=== PATIENT | female | born 1935 | race Caucasian/White ===

== ENCOUNTER 2018-09-17 03:17 | Emergency (ER) | payer OTHER, MEDICAID ==
[~2018-09-17] VITALS: Ht 147.3 cm; Wt 45.5 kg
[~2018-09-17 03:17] MED LIST: ACET500C5 PO
[2018-09-17 03:19] VITALS: Ht 147.3 cm; Wt 45.5 kg
[2018-09-17] MEDS ORDERED: morphine 2 MG INJ IV STA ×2 (03:34→04:39)
--- NOTE | 2018-09-17 03:59 | ERD ---
ER Documentation Chief Complaint Chief Complaint left shoulder pain s/p mechanical trip & fall, no LOC, no nk/bk HPI 82-year-old female presenting from home after she had a mechanical fall. She was getting up to go check on her granddaughters baby when she tripped and fell onto her left shoulder. She complains of severe left shoulder pain, 10 out of 10, nonradiating, aching. Worse with movement. Denies any head injury or loss of consciousness. No chest pain, shortness of breath, or any other injuries. ROS All systems reviewed and are negative except as per history of present illness. Medications Home Meds Active Scripts Hydrocodone/Acetaminophen ([place] 5-325 Tablet) 1 Each Tablet, 1 TAB PO Q6H PRN for PAIN, #7 TAB Prov:SUZAN SOLANO MD 09/17/18 Acetaminophen* (Tylophen*) 500 Mg Capsule, 1 CAP PO Q6H PRN for PAIN AND OR ELEVATED TEMP, #16 CAP Prov:REBECCA STEARNS MD 11/27/15 Allergies Allergies: Coded Allergies: No Known Allergy (Unverified , 11/27/15) PMhx/Soc History of Surgery: No Anesthesia Reaction: No Hx Neurological Disorder: No Hx Respiratory Disorders: No Hx Cardiac Disorders: Yes (hypertension) Hx Psychiatric Problems: No Hx Alcohol Use: No Hx Substance Use: No Hx Tobacco Use: No Smoking Status: Never smoker FmHx Family History: No diabetes Physical Exam Vitals Vital Signs Date Temp Pulse Resp B/P (MAP) Pulse Ox O2 O2 Flow FiO2 Time Delivery Rate 09/17/18 62 18 120/64 97 Room Air 06:03 (82) 09/17/18 63 19 126/71 97 Room Air 05:20 (89) 09/17/18 97.9 64 18 139/75 98 Room Air 04:45 (96) 09/17/18 65 20 128/68 97 Room Air 03:46 (88) 09/17/18 97.5 64 18 152/80 99 03:19 (104) Physical Exam Const: Mild distress secondary to pain Head: Atraumatic Eyes: Normal Conjunctiva, PERRLA ENT: Normal External Ears, Nose and Mouth. Neck: Full range of motion. No meningismus. no C-spine tenderness Resp: Clear to auscultation bilaterally Cardio: Regular rate and rhythm, no murmurs Abd: Soft, non tender, non distended. Normal bowel sounds Skin: No petechiae or rashes Back: No midline or flank tenderness Ext: Left shoulder joint swollen with diffuse tenderness to palpation of the proximal humerus. Distal humerus, elbow, forearm, wrist, and hand nontender to palpation. Full range of motion of the wrist and elbow. Unable to range the left shoulder secondary to pain. Sensations intact in all distributions, including over the deltoid. Good accounting support specialist strength. 2+ radial pulse. All other extremities atraumatic, normal to inspection and palpation. Hips are nontender, pelvis stable Neur: Awake and alert, oriented x3, cranial nerves intact, strength grossly intact. Psych: Normal Mood and Affect Results 24 hrs Current Medications Medications Dose Sig/Farshad Start Time Status Last (Trade) Ordered Route PRN Stop Time Admin Dose Reason Admin Morphine 2 mg ONCE STAT 09/17/18 DC 09/17/18 Sulfate IV 03:34 03:43 (morphine) 09/17/18 03:36 Morphine 2 mg ONCE STAT 09/17/18 DC 09/17/18 Sulfate IV 04:39 04:50 (morphine) 09/17/18 04:40 Procedures/MDM EMERGENT LABS AND DIAGNOSTIC STUDIES: Radiology Results as interpreted by Radiology below were reviewed by Rosette Solano MD: X-ray left humerus/shoulder: Acute comminuted humerus surgical neck fracture Initial Nursing notes reviewed. Previous Medical Records requested via the Electronic Health Record. EMERGENCY DEPARTMENT COURSE / MEDICAL DECISION MAKING: Patient presents after mechanical ground-level fall with left shoulder pain. X- rays are consistent with comminuted fracture of the surgical neck of the humerus. She is neurovascularly intact on exam. Patient placed in shoulder sling. Follow-up with orthopedics recommended. Information for Dr. Chan given. Pain was treated with good response. Prescription for [place] given for pain control. Return precautions discussed. Patient and granddaughter at bedside understand discharge plan and importance of following up with orthopedics within 1 week. Patient's blood pressure was elevated (>120/80) but appears stable without evidence of hypertensive emergency or urgency. The patient was counseled about the risks of hypertension and urged to pursue outpatient monitoring and therapy within a week with their primary care physician. Departure Diagnosis: Primary Impression: Fall Encounter type: initial encounter Qualified Codes: W19.XXXA - Unspecified fall, initial encounter Additional Impression: Fracture of neck of left humerus Encounter type: initial encounter Fracture type: closed Qualified Codes: S42.212A - Unspecified displaced fracture of surgical neck of left humerus, initial encounter for closed fracture Condition: Stable SUZAN SOLANO MD Sep 17, 2018 03:59
[2018-09-17] MEDS ORDERED: HYDR-4011 PO (05:17)
[2018-09-17 06:03] VITALS: BP 120/64; PULSE 62; RESP 18
== END 2018-09-17 06:17 | disposition home or self-care (01) ==
LOC: E/R 03:17
DX: S42.212A Unspecified displaced fracture of surgical neck of left humerus, initial encounter for closed fracture (principal); I10 Essential (primary) hypertension; R40.2142 Coma scale, eyes open, spontaneous, at arrival to emergency department; R40.2252 Coma scale, best verbal response, oriented, at arrival to emergency department; R40.2362 Coma scale, best motor response, obeys commands, at arrival to emergency department; W01.0XXA Fall on same level from slipping, tripping and stumbling without subsequent striking against object, initial encounter; Y92.009 Unspecified place in unspecified non-institutional (private) residence as the place of occurrence of the external cause
CPT/HCPCS: 71045; 73030; 73060; 96374; 96376; 99284; J2270

== ENCOUNTER 2018-12-26 20:56 | Observation (INO) | payer OTHER, MEDICAID ==
[~2018-12-26] VITALS: Ht 144.8 cm; Wt 50.0 kg
[~2018-12-26 20:56] MED LIST changes: +HYDR-4011 PO
[2018-12-27] MEDS ORDERED: ALBUTEROL 0.083% (NEB) 2.5 MG/3 ML AMP NEB STA (01:17)
[2018-12-27] MEDS ORDERED: IPRATROPIUM (NEB) 0.5 MG/2.5 ML AMP NEB STA (01:17)
[2018-12-27] MEDS ORDERED: ONDANSETRON 4 MG INJ IV PRN (03:30)
[2018-12-27] MEDS ORDERED: ACETAMINOPHEN 325 MG TAB PO PRN (03:30)
[2018-12-27] MEDS ORDERED: BISACODYL (EC) 5 MG TAB PO PRN (03:30)
[2018-12-27] MEDS ORDERED: DOCUSATE SODIUM 100 MG CAP PO PRN (03:30)
[2018-12-27] MEDS ORDERED: NACL 0.9% 3 ML SYG IV SCH (03:30)
[2018-12-27] MEDS ORDERED: CALC-143 PO (03:49)
[2018-12-27] MEDS ORDERED: AMLO-147 PO (03:49)
--- NOTE | 2018-12-27 04:39 | ERD ---
ER Documentation Chief Complaint Chief Complaint SOB, WEAKNESS X'S 4 DAYS HPI This is an 83-year-old female returns with weakness for the past 4 days. Denies nausea vomiting or chills. She is had mild cough as well she is been incr easingly short of breath especially with exertion. Family states they feel like she has been wheezing as well. ROS All systems reviewed and are negative except as per history of present illness. Medications Home Meds Reported Medications Calcium Citrate/Vitamin D (Citracal-Vitamin D 200 MG-250) 1 Each Tablet, 1 EACH PO BID, TAB 12/27/18 Amlodipine Besylate* (Amlodipine Besylate*) 10 Mg Tablet, 10 MG PO DAILY, #30 TAB 12/27/18 Discontinued Scripts Hydrocodone/Acetaminophen ([place] 5-325 Tablet) 1 Each Tablet, 1 TAB PO Q6H PRN for PAIN, #7 TAB Prov:SUZAN BARAJAS MD 09/17/18 Acetaminophen* (Tylophen*) 500 Mg Capsule, 1 CAP PO Q6H PRN for PAIN AND OR ELEVATED TEMP, #16 CAP Prov:REBECCA STEARNS MD 11/27/15 Allergies Allergies: Coded Allergies: No Known Allergy (Unverified , 12/27/18) PMhx/Soc History of Surgery: No Anesthesia Reaction: No Hx Neurological Disorder: No Hx Respiratory Disorders: No Hx Cardiac Disorders: Yes (hypertension) Hx Psychiatric Problems: No Hx Miscellaneous Medical Probl: Yes (glaucoma) Hx Alcohol Use: No Hx Substance Use: No Hx Tobacco Use: No Smoking Status: Never smoker Physical Exam Vitals Vital Signs Date Temp Pulse Resp B/P (MAP) Pulse Ox O2 O2 Flow FiO2 Time Delivery Rate 12/27/18 63 18 97 21 01:25 12/26/18 97.3 77 18 150/70 97 20:58 (96) Physical Exam Const: No acute distress Head: Atraumatic Eyes: Normal Conjunctiva ENT: Normal External Ears, Nose and Mouth. Neck: Full range of motion. No meningismus. Resp: Clear to auscultation bilaterally Cardio: Regular rate and rhythm, no murmurs Abd: Soft, non tender, non distended. Normal bowel sounds Skin: No petechiae or rashes Back: No midline or flank tenderness Ext: No cyanosis, or edema Neur: Awake and alert Psych: Normal Mood and Affect Result Diagram: 12/26/189 12/26/182318 Results 24 hrs Laboratory Tests Test 12/26/18 23:19 12/27/18 02:25 White Blood Count 7.0 10^3/ul Red Blood Count 4.26 10^6/ul Hemoglobin 13.2 g/dl Hematocrit 40.5 % Mean Corpuscular Volume 95.1 fl Mean Corpuscular Hemoglobin 31.0 pg Mean Corpuscular Hemoglobin Concent 32.6 g/dl Red Cell Distribution Width 12.7 % Platelet Count 192 10^3/UL Mean Platelet Volume 12.3 fl Immature Granulocytes % 0.100 % Neutrophils % 61.1 % Lymphocytes % 25.3 % Monocytes % 8.7 % Eosinophils % 4.1 % Basophils % 0.7 % Nucleated Red Blood Cells % 0.0 /100WBC Immature Granulocytes # 0.010 10^3/ul Neutrophils # 4.3 10^3/ul Lymphocytes # 1.8 10^3/ul Monocytes # 0.6 10^3/ul Eosinophils # 0.3 10^3/ul Basophils # 0.1 10^3/ul Nucleated Red Blood Cells # 0.0 10^3/ul Prothrombin Time 12.9 Sec Prothrombin Time Ratio 1.0 INR International Normalized Ratio 0.96 Activated Partial Thromboplast Time 25.4 Sec Sodium Level 140 mmol/L Potassium Level 3.6 mmol/L Chloride Level 107 mmol/L Carbon Dioxide Level 27 mmol/L Anion Gap 6 Blood Urea Nitrogen 20 mg/dl Creatinine 0.45 mg/dl Est Glomerular Filtrat Rate mL/min mL/min Glucose Level 105 mg/dl Calcium Level 9.2 mg/dl Total Bilirubin 0.4 mg/dl Direct Bilirubin 0.00 mg/dl Indirect Bilirubin 0.4 mg/dl Aspartate Amino Transf (AST/SGOT) 23 IU/L Alanine Aminotransferase (ALT/SGPT) 9 IU/L Alkaline Phosphatase 113 IU/L Troponin I < 0.012 ng/ml B-Type Natriuretic Peptide 159 PG/ML Total Protein 7.3 g/dl Albumin 4.2 g/dl Globulin 3.10 g/dl Albumin/Globulin Ratio 1.35 Lactic Acid Level 0.7 mmol/L Current Medications Medications Dose Sig/Fasrhad Start Time Status Last (Trade) Ordered Route PRN Stop Time Admin Dose Reason Admin Albuterol 5 mg ONCE STAT 12/27/18 DC 12/27/18 (Proventil NEB 01:17 01:25 0.083% (Neb)) 12/27/18 01:18 Ipratropium 0.5 mg ONCE STAT 12/27/18 DC 12/27/18 [place] NEB 01:17 01:24 (Atrovent 12/27/18 01:18 0.02% (Neb)) Procedures/MDM Medical decision making: This very pleasant patient comes in with mild chest janette n shortness of breath. I do feel like this is more emphysematous in nature. Patient given breathing treatments with good response however the patient will need observation admission. I spoke to [facility], advised to admit the patient to the hospitalist team here. Dr. Walsh made aware of admission. EKG: Rate/Rhythm: Normal Sinus Rhythm QRS, ST, T-waves: No changes consistent w/ acute ischemia Impression: No evidence of ischemia or arrhythmia Chest X-ray 1V Interpreted by me: Soft Tissue: No acute abnormalities Bones: No acute abnormalities Mediastinum/Cardiac Silhouette/Lungs: No acute abnormalities Departure Diagnosis: Primary Impression: Shortness of breath Condition: Serious TATYANA REYEZ December 27, 2018 04:39
[2018-12-27 04:48] VITALS: BP 136/72; PULSE 67; RESP 16
[2018-12-27 05:09] VITALS: Ht 144.8 cm; Wt 50.0 kg
[2018-12-27 08:07] VITALS: BP 108/54; PULSE 63; RESP 18
[2018-12-27] MEDS ORDERED: ALBUTEROL/IPRATROPIUM (NEB) 3 ML AMP HHN STA (13:56)
--- NOTE | 2018-12-27 13:56 | HP ---
Date/Time of Note Date/Time of Note DATE: 12/27/18 TIME: 13:52 Assessment/Plan VTE Prophylaxis Risk score (from Ns)>0 risk: 5 SCD applied (from Ns): Yes Pharmacological prophylaxis: LMWH Lines/Catheters IV Catheter Type (from [facility]): Saline Lock Assessment/Plan Hospital Course SUBJECTIVE: Lying in bed comfortably. No fevers, cough, shortness of breath, wheezing. OBJECTIVE: Vital signs-see below PHYSICAL EXAM: Constitutional: Adequately built,not in acute distress. HEENT: Head atraumatic and normocephalic. Eyes: Extraocular muscles intact. Anicteric sclerae. Pupils equal bilaterally, reactive to light. NECK: Supple without lymph node. CHEST: Clear and good breath sounds equally. No wheezing. No rhonchi. HEART: S1, S2. Regular rate and rhythm. ABDOMEN: Soft/non tender with no rebound tenderness. Bowel sounds were present. EXTREMITIES: No cyanosis, clubbing or edema. NEUROLOGIC: Alert and oriented x3. No focal deficit. No sensory deficit. PSYCHOSOCIAL: No signs of depression. INTEGUMENTARY: No open wounds. ASSESSMENT AND PLAN:83 yo F w/htn,osteoporosis,recent lt shoulder fx asked by [facility] group to get admitted for progressive weakness/diazines w/frequent fall/cough/wheezing.. URI -Patient is already recuperating -Obtain influenza swabs -We will continue to treat this with p.o. azithromycin, PRN bronchodilators and cough medications. Dizziness -Go ahead with a brain CT to rule out any acute intracranial process. -PT evaluation Debility with frequent falls -Family is not receptive for ECF. Their goal is to take patient home but with some kind of assistance. We will obtain physical therapy evaluation to determine whether patient can be best served with a home health PT. Recent left shoulder fracture -Nonsurgical HTN -Resume home meds Osteoporosis -Resume home medications -Obtain vitamin levels DVT prophylaxis: Lovenox Rest of the management depend on clinical course. Anticipate discharge Result Diagram: 12/27/18 0448 12/27/18 0448 Results 24hrs Laboratory Tests Test 12/26/18 23:19 12/27/18 02:25 12/27/18 04:46 12/27/18 04:48 White Blood Count 7.0 6.2 Red Blood Count 4.26 3.82 L Hemoglobin 13.2 12.0 Hematocrit 40.5 36.0 L Mean Corpuscular 95.1 94.2 Volume Mean Corpuscular 31.0 31.4 Hemoglobin Mean Corpuscular 32.6 33.3 Hemoglobin Concent Red Cell 12.7 12.7 Distribution Width Platelet Count 192 179 Mean Platelet Volume 12.3 H 12.4 H Immature 0.100 0.300 Granulocytes % Neutrophils % 61.1 60.3 Lymphocytes % 25.3 24.5 Monocytes % 8.7 9.9 Eosinophils % 4.1 4.5 Basophils % 0.7 0.5 Nucleated Red Blood 0.0 0.0 Cells % Immature 0.010 0.020 Granulocytes # Neutrophils # 4.3 3.7 Lymphocytes # 1.8 1.5 Monocytes # 0.6 0.6 Eosinophils # 0.3 0.3 Basophils # 0.1 0.0 Nucleated Red Blood 0.0 0.0 Cells # Prothrombin Time 12.9 Prothrombin Time 1.0 Ratio INR International 0.96 Normalized Ratio Activated 25.4 Partial Thromboplast Time Sodium Level 140 141 Potassium Level 3.6 3.5 Chloride Level 107 108 Carbon Dioxide Level 27 27 Anion Gap 6 6 Blood Urea Nitrogen 20 17 Creatinine 0.45 0.46 Est Glomerular Filtrat Rate mL/min Glucose Level 105 129 Calcium Level 9.2 9.1 Total Bilirubin 0.4 0.6 Direct Bilirubin 0.00 0.00 Indirect Bilirubin 0.4 0.6 Aspartate Amino 23 20 Transf (AST/SGOT) Alanine 9 L 11 L Aminotransferase (AL T/SGPT) Alkaline Phosphatase 113 85 Troponin I < 0.012 < 0.012 B-Type Natriuretic 159 Peptide Total Protein 7.3 6.1 # Albumin 4.2 3.5 Globulin 3.10 2.60 Albumin/Globulin 1.35 1.34 Ratio Lactic Acid Level 0.7 1.2 Hemoglobin A1c 5.2 Magnesium Level 2.2 Creatine Kinase 60 Creatine Kinase 1.4 Index Creatinine Kinase MB 0.81 (Mass) Triglycerides Level 64 Cholesterol Level 143 LDL Cholesterol, 65 Calculated HDL Cholesterol 65 Cholesterol/HDL 2.2 Ratio Test 12/27/18 12:51 Creatine Kinase 49 Creatine Kinase 1.2 Index Creatinine Kinase MB 0.59 (Mass) Troponin I < 0.012 HPI/ROS Admit Date/Time Admit Date/Time December 27, 2018 at 02:57 Hx of Present Illness This a 83-year-old female with a history of hypertension, recent left shoulder fracture, severe osteoporosis, who was asked by her medical group which is [facility] to get admitted for worsening debility, dizziness with frequent falls, generalized weaknessx 4 days. Also complained of productive cough, mild shortness of breath and mild wheezing for few weeks duration. She denied fever or chills. He denied chest pain, palpitation, nausea, vomiting, abdominal pain,headache, loss of consciousness, speech difficulties, vision changes, diarrhea, constipation or other constitutional symptoms. Initial labs unremarkable. Chest x-ray unremarkable. Vital signs stable with no fevers. ROS A 12 point review of system was assessed and is negative other than what is mentioned in the HPI PMH/Family/Social Past Medical History See HPI Medications Current Medications IV Flush (NS 3 ml) 3 ml PER PROTOCOL IV ; Start 12/27/18 at 03:30 Ondansetron HCl (Zofran Inj) 4 mg Q6H PRN IV NAUSEA/VOMITING; Start 12/27/18 at 03:30 Acetaminophen (Tylenol Tab) 650 mg Q6H PRN PO .PAIN 1-3 OR TEMP Last administered on 12/27/18at 11:33; Admin Dose 650 MG; Start 12/27/18 at 03:30 Docusate Sodium (Colace) 100 mg Q12H PRN PO .CONSTIPATION; Start 12/27/18 at 03:30 Bisacodyl (Dulcolax) 5 mg DAILY PRN PO .CONSTIPATION; Start 12/27/18 at 03:30 Coded Allergies: No Known Allergy (Unverified , 12/27/18) Past Surgical History See HPI Social History Denied history of alcohol, smoking or illicit drug use. Smoking Status: Never smoker Exam/Review of Systems Vital Signs Vitals Vital Signs Date Temp Pulse Resp B/P (MAP) Pulse Ox O2 O2 Flow FiO2 Time Delivery Rate 12/27/18 98.6 63 18 108/54 96 Room Air 08:07 (72) 12/27/18 21 01:25 SANDRA ESPINOZA NP December 27, 2018 13:56
[2018-12-27] MEDS ORDERED: ALBUTEROL/IPRATROPIUM (NEB) 3 ML AMP HHN PRN (14:00)
[2018-12-27] MEDS ORDERED: GUAIFENESIN/DM 5ML CUP PO PRN (14:00)
[2018-12-27] MEDS: AZITHROMYCIN 500 MG TAB PO SCH (14:43)
[2018-12-27 19:15] VITALS: BP 119/59; PULSE 61; RESP 20
[2018-12-27] MEDS ORDERED: CALCIUM/VITAMIN D (500/200) TAB PO SCH (21:00)
--- NOTE | 2018-12-27 21:47 | RADRPT ---
Echocardiogram Report Patient Name: Aimee NICHOLAS ID: [id number] : 1935 (83y 3m)Study Date: 12/27/2018 9:19:27 AM Gender: FAccession #: [id number] Tech: Sebastian [facility] Location: [address] Ref.Physician: KATLIN MICHAEL Height(Cm): BSA: Weight(Kg): Quality: AdequateOrder Physician: KATLIN MICHAEL Account #: Procedures: Echocardiographic Report: Transthoracic echocardiogram with complete 2D, M-Mode, and doppler examination. Indications: Chest Pain. Measurements: 2D/M Mode Doppler Measurement Value Normal Range Measurement Value Normal Range LVIDd 2D 3.7 [ 3.8 - 5.2 ] cm AV Peak Frederick 1.3 [ 100.0 - 170.0 ] cm/sec LVIDs 2D 2.6 [ 2.2 - 3.5 ] cm AV Peak PG 7.0 [ 2.0 - 9.0 ] mmHg LVPWd 2D 0.9 [ 0.6 - 0.9 ] cm AI Peak PG 59.0 mmHg IVSd 2D 1.5 [ 0.6 - 0.9 ] cm AI Peak Frederick 3.8 cm/sec AoR Diam 2D 2.9 [ 2.3 - 3.1 ] cm AI PHT 714.0 msec EDV 2D 58.1 [ 46.0 - 106.0 ] ml LVOT Peak Frederick 1.0 [ 70.0 - 110.0 ] cm/sec ESV 2D 25.3 [ 14.0 - 42.0 ] ml LVOT Peak PG 4.0 [ 2.0 - 6.0 ] mmHg EF 2D 56.5 [ 54.0 - 74.0 ] percent MV E Peak Frederick 0.6 [ 60.0 - 130.0 ] cm/sec LA Dimen 2D 3.5 [ 2.7 - 3.8 ] cm MV A Peak Frederick 0.8 [ 100.0 - 120.0 ] cm/sec MV E/A 0.8 [ 0.8 - 1.5 ] ratio MV Decel Time 201 [ 104 - 258 ] msec Lat E` Frederick 0.1 [ 10.0 - 15.0 ] cm/sec Lateral E/E` 7.2 [ 1.0 - 2.0 ] ratio MV E/A 0.8 [ 0.8 - 1.5 ] ratio TR Peak Frederick 2.6 [ 100.0 - 280.0 ] cm/sec TR Peak PG 27.0 mmHg RVSP 35.0 [ 10.0 - 36.0 ] mmHg Findings: Left Ventricle: Normal left ventricular systolic function. Normal left ventricular cavity size. Sigmoid septum. Ejection fraction is visually estimated at 65 %. Tissue Doppler/Mitral Doppler indices are consistent with impaired relaxation (Stage I diastolic dysfunction). Right Ventricle: Normal right ventricular size. Normal right ventricular systolic function. Left Atrium: The left atrium is normal in size. Right Atrium: The right atrium is normal in size. Mitral Valve: Mild mitral leaflet calcification. Mild mitral annular calcification. Mild mitral valve regurgitation. Aortic Valve: No hemodynamically significant aortic stenosis by doppler. Aortic cusps appear mildly calcified. Mild to moderate aortic valve regurgitation. Tricuspid Valve: Normal appearance of the tricuspid valve. The estimated Peak RVSP is 35 mmHg. There is mild tricuspid regurgitation. Pericardium: Normal pericardium with no significant pericardial effusion. Aorta: Normal aortic root. IVC: Dilated IVC with respiratory collapse consistent with elevated right atrial pressure. Conclusions: Normal left ventricular systolic function. Normal left ventricular cavity size. Sigmoid septum. Ejection fraction is visually estimated at 65 %. Tissue Doppler/Mitral Doppler indices are consistent with impaired relaxation (Stage I diastolic dysfunction). Normal right ventricular size. Normal right ventricular systolic function. The left atrium is normal in size. The right atrium is normal in size. Mild mitral valve regurgitation. No hemodynamically significant aortic stenosis by doppler. Mild to moderate aortic valve regurgitation. The estimated Peak RVSP is 35 mmHg. There is mild tricuspid regurgitation. Normal pericardium with no significant pericardial effusion. Electronically Signed By: Ishmael Garza 2018-12-27 21:46:23 PDT
[2018-12-28 02:00] VITALS: BP 116/56; PULSE 67; RESP 20
[2018-12-28 08:21] VITALS: BP 131/69; PULSE 62; RESP 18
[2018-12-28] MEDS ORDERED: ENOXAPARIN 40 MG/0.4 ML SYG SC SCH (09:00)
[2018-12-28] MEDS ORDERED: AMLODIPINE 10 MG TAB PO SCH (09:00)
[2018-12-28] MEDS: AZITHROMYCIN 500 MG TAB PO SCH (09:43)
--- NOTE | 2018-12-28 10:26 | PDOCDIS ---
Discharge Instructions CONDITION [id number] Patient Condition: [id number] Stable HOME CARE INSTRUCTIONS: [id number] Diet Instructions: [id number] Regular FOLLOW UP/APPOINTMENTS Follow-up Plan Follow-up with primary care physician in 1 week SANDRA ESPINOZA NP December 28, 2018 10:26
[2018-12-28] MEDS ORDERED: AZIT500T5 PO (10:36)
[2018-12-28] MEDS ORDERED: GUAI120S25 PO (10:36)
--- NOTE | 2018-12-28 10:45 | DS ---
Date/Time of Note Date/Time of Note DATE: 12/28/18 TIME: 10:41 Discharge Summary Admission/Discharge Info Admit Date/Time December 27, 2018 at 02:57 Discharge Date/Time Discharge Diagnosis URI Dizziness.Resolved Debility with frequent falls Recent left shoulder fracture HTN Osteoporosis Osteoma Patient Condition: Stable Procedures 12/27/2018: CT brain FINDINGS: Ventricular system and brain parenchyma appear unremarkable. Moderate overlying proportionate brain atrophy noted. No acute intracranial bleed, midline shift, acute extra-axial collection noted. Calcification seen in the left posterior temporal, left frontal cortices. Brain stem, posterior fossa appears unremarkable. Bony calvarium and overlying soft tissues appear unremarkable. Calcifications intracranial ICA and distal vertebral arteries seen. Bony outgrowth in the frontal lobe probably osteoma. Overlying soft tissues appear unremarkable. Visualized portions of the paranasal sinuses are clear IMPRESSION: NO ACUTE INTRACRANIAL BLEED NOTED. IF FURTHER WORKUP IS DESIRED, FOLLOW-UP MRI MAY BE HELPFUL. RPTAT: AAOO Physician Kary Date Time Electronically viewed and signed by Physician Kary on 12/27/2018 16:57 MB/ CC: SANDRA ESPINOZA NP [phone] Hx of Present Illness This a 83-year-old female with a history of hypertension, recent left shoulder fracture, severe osteoporosis, who was asked by her medical group which is [facility] to get admitted for worsening debility, dizziness with frequent falls, generalized weaknessx 4 days. Also complained of productive cough, mild shortness of breath and mild wheezing for few weeks duration. She denied fever or chills. He denied chest pain, palpitation, nausea, vomiting, abdominal pain,headache, loss of consciousness, speech difficulties, vision changes, diarrhea, constipation or other constitutional symptoms. Initial labs unremarkable. Chest x-ray unremarkable. Vital signs stable with no fevers. Hospital Course 83 yo F w/htn,osteoporosis,recent lt shoulder fx is managed medically asked by [facility] to get admitted for progressive weakness/diazines w/frequent fall/cough/wheezing.. Patient was noted with an upper respiratory infection and she responded well to azithromycin, supportive care with cough medications. In regards to dizziness, CT brain was negative for any acute intracranial process . She did well with physical therapy evaluation and required home health and walker on discharge. Overall, patient with advanced age, advanced osteoporosis requiring assistance at home. Family is not receptive for ECF. At this time, patient is feeling back to baseline. She does not have any acute discomfort. Patient to follow-up with her primary care physician in 1 week. C ase management to arrange home health and walker upon discharge. Approximately 60 m spent on coordinating the discharge on this patient. Home Meds Active Scripts [id number] Hb* (Guaifenesin* DM Syrup) 120 Ml Syrup, 10 ML PO Q4H PRN for cough, #1 BOTTLE Prov:SANDRA ESPINOZA NP 12/28/18 Azithromycin* (Azithromycin*) 500 Mg Tablet, 500 MG PO DAILY for 3 Days, #3 TAB Prov:SANDRA ESPINOZA NP 12/28/18 Reported Medications Calcium Citrate/Vitamin D (Citracal-Vitamin D 200 MG-250) 1 Each Tablet, 1 EACH PO BID, TAB 12/27/18 Amlodipine Besylate* (Amlodipine Besylate*) 10 Mg Tablet, 10 MG PO DAILY, #30 TAB 12/27/18 Discontinued Scripts Hydrocodone/Acetaminophen ([place] 5-325 Tablet) 1 Each Tablet, 1 TAB PO Q6H PRN for PAIN, #7 TAB Prov:SUZAN BARAJAS MD 09/17/18 Acetaminophen* (Tylophen*) 500 Mg Capsule, 1 CAP PO Q6H PRN for PAIN AND OR ELEVATED TEMP, #16 CAP Prov:REBECCA STEARNS MD 11/27/15 Follow-up Plan Follow-up with primary care physician in 1 week Primary Care Provider Not On Staff Doctor Pending Labs Laboratory Tests Test 12/27/18 12:51 Creatine Kinase 49 IU/L (23-200) Creatine Kinase Index 1.2 Creatinine Kinase MB (Mass) 0.59 ng/ml (0.0-2.4) Troponin I < 0.012 ng/ml (0.000-0.120) SANDRA ESPINOZA NP December 28, 2018 10:45
== END 2018-12-28 15:40 | disposition home health service (06) ==
LOC: E/R 20:56 → MS1 12-27 02:57
PROVIDERS: ADMIT Family Medicine; ATTEND Family Medicine
DX: J06.9 Acute upper respiratory infection, unspecified (principal); R42 Dizziness and giddiness; I10 Essential (primary) hypertension; R53.81 Other malaise; M81.0 Age-related osteoporosis without current pathological fracture; D16.9 Benign neoplasm of bone and articular cartilage, unspecified; Z91.81 History of falling; S42.92XA Fracture of left shoulder girdle, part unspecified, initial encounter for closed fracture; X58.XXXA Exposure to other specified factors, initial encounter
CPT/HCPCS: 36415; 70450; 71045; 80053; 80061; 82550; 82553; 82607; 82652; 82728; 83036; 83540; 83605; 83735; 83880; 84484; 85025; 85610; 85730; 93005; 93306; 94664; 97162; 99285; G0378; J1650